=== PATIENT | male | born 1970 | race Caucasian/White ===

== ENCOUNTER 2016-10-05 10:39 | Inpatient (IN) | payer BC, OTHER ==
[~2016-10-05] VITALS: Ht 182.9 cm; Wt 91.7 kg
[~2016-10-05 10:39] MED LIST: ALBU0.086 NEB; ALBU8I INH; PRED20 PO
[2016-10-07] VITALS (8 sets, daily range): BP systolic 129–157; BP diastolic 76–97; PULSE 63–102; RESP 15–22; TEMP 95.6–97.8; O2SAT 95–99
[2016-10-07] MEDS ORDERED: VANCOMYCIN 1000 MG/NS 250 ML (for <70 kg) IV SCH ×2 (06:15)
[2016-10-07] MEDS ORDERED: SODIUM CHLORID 0.9% 500 ML IV PRN (06:30)
[2016-10-07] MEDS ORDERED: METOPROLOL TARTRATE 25 MG TAB PO PRN (06:30)
[2016-10-07] MEDS ORDERED: INSULIN HUMAN REGULAR 1,000 UNITS/10 ML VIAL SQ PRN (06:30)
[2016-10-07] MEDS ORDERED: POVIDONE IODINE 5% (ANTISEPSIS KIT) 4 APPLICATIONS EACH NARE PRN (06:30)
[2016-10-07] MEDS ORDERED: LACTATED RINGER'S 1000 ML IV PRN (06:30)
[2016-10-07] MEDS ORDERED: CHLORHEXIDINE GLUCONATE 2 % 1 PACK (2 CLOTHS) TOPICAL PRN (06:30)
[2016-10-07] MEDS ORDERED: SYMB160A INH (06:35)
[2016-10-07] MEDS ORDERED: VENTAER INH (06:35)
[2016-10-07] MEDS ORDERED: PANT40TA3 PO (06:35)
[2016-10-07] MEDS ORDERED: ALBU0.63 NEB (06:35)
[2016-10-07 07:10] LABS: AUTOMATED NEUTROPHIL # 4.4 TH/MM3 (1.8-7.7); BASOPHIL # 0.1 TH/MM3 (0-0.2); BASOPHIL % 1.1 % (0.0-2.0); EOSINOPHIL # 0.2 TH/MM3 (0-0.4); EOSINOPHIL % 2.5 % (0.0-4.0); HEMATOCRIT 37.6 % (39.0-51.0); HEMO FLAGS DIFF FINAL; LYMPH % 24.3 % (9.0-44.0); LYMPHOCYTE # 1.8 TH/MM3 (1.0-4.8); MEAN CORPUSCULAR HEMOGLOBIN 28.8 PG (27.0-34.0); MEAN CORPUSCULAR HGB CONC 33.5 % (32.0-36.0); MONO % 10.9 % (0.0-8.0); NEUT % 61.2 % (16.0-70.0); PLATELET COUNT 319 TH/MM3 (150-450); RED BLOOD COUNT 4.38 MIL/MM3 (4.50-5.90); RED CELL DISTRIBUTION WIDTH 13.6 % (11.6-17.2); WHITE BLOOD COUNT 7.2 TH/MM3 (4.0-11.0)
[2016-10-07] MEDS ORDERED: FAMOTIDINE 20 MG/2 ML VIAL ONE (07:24)
[2016-10-07] MEDS ORDERED: BUPIVACAINE/EPINEPHRINE 0.25% PF 30 ML VIAL INFIL ONE (08:18)
[2016-10-07] MEDS ORDERED: fentaNYL CITRATE 250 MCG/5 ML AMP ONE ×3 (09:13→13:17)
[2016-10-07] MEDS ORDERED: ACETAMINOPHEN 1000 MG/100 ML VIAL IV ONE (09:13)
[2016-10-07] MEDS ORDERED: NEOSTIGMINE 3 MG/3 ML SYR IV ONE (11:06)
[2016-10-07] MEDS ORDERED: PROPOFOL 200 MG/20 ML AMP IV ONE (11:06)
[2016-10-07] MEDS ORDERED: KETOROLAC TROMETHAMINE 60 MG/2 ML (IM) VIAL IM ONE (11:07)
[2016-10-07] MEDS ORDERED: LACTATED RINGER'S 1000 ML INJ 1,000 ML IV ONE (11:07)
[2016-10-07] MEDS ORDERED: ONDANSETRON HCL 4 MG/2 ML VIAL IV PUSH ONE (11:07)
[2016-10-07] MEDS: SODIUM CHLOR 0.9% 1000 ML INJ 1,000 ML IV SCH ×2 (11:49→22:36)
--- NOTE | 2016-10-07 11:54 | HHI.PR ---
cc: Dewayne Jo MD Immediate Post Op Note Procedure Date: Oct 07, 2016 Pre Op Diagnosis: (1) Hiatal hernia (2) Mckee's esophagus with esophagitis (3) GERD (gastroesophageal reflux disease) (4) Status post laparoscopic Cinthia fundoplication (5) Family history of heart disease Post Op Diagnosis: (1) Hiatal hernia (2) Mckee's esophagus with esophagitis (3) GERD (gastroesophageal reflux disease) (4) Status post laparoscopic Cinthia fundoplication (5) Abdominal adhesions Surgeon: Dewayne Jo Welding Estimator(s): Dr. Rick Adames Procedure: Diagnostic laparoscopy and laparoscopic lysis of adhesions Attempted reduction of hiatal hernia Repair of gastrotomy Findings: Dense adhesions around the previous fundoplication Inability to completely reduce hiatal hernia secondary to adhesions Anesthesia: General Drains: None IVF Patient to: PACU Patient Condition: Good Implant/Devices: SEE IMPLANT LOG (if applicable) Date/Time of Procedure: SEE SURGICAL CARE RECORD Dewayne Jo MD Oct 07, 2016 11:54
[2016-10-07] MEDS ORDERED: HYDR-3516 PO (11:58)
[2016-10-07] MEDS ORDERED: Post-op Orders (for Pharmacy) MISC XX ONE (12:00)
[2016-10-07] MEDS ORDERED: SODIUM CHLORIDE 0.9% FLUSH 10 ML FLUSH IV FLUSH PRN (12:00)
[2016-10-07] MEDS ORDERED: MIDAZOLAM HCL 2 MG/2 ML VIAL ONE (12:03)
[2016-10-07] MEDS ORDERED: *morphine SULFATE 8 MG/ML PERIprocedure ONLY ONE ×3 (12:14→13:00)
[2016-10-07] MEDS ORDERED: DO NOT ADM ANY ANTICOAGULANT DRUGS PRN (13:00)
[2016-10-07] MEDS ORDERED: MIDAZOLAM HCL 5 MG/5 ML VIAL ONE (13:17)
--- NOTE | 2016-10-07 13:18 | RADRPT ---
EXAM DATE/TIME: 10/07/2016 12:16 [facility] COMPARISON: CHEST SINGLE AP, February 20, 2016, 11:02. INDICATIONS : Post hiatal hernia repair MEDICAL HISTORY : Hiatal hernia. salmeron's esophagus SURGICAL HISTORY : hiatal hernia surgery. ENCOUNTER: Initial ACUITY: 1 day PAIN SCORE: 0/10 LOCATION: Bilateral chest FINDINGS: A left-sided pneumothorax with subtotal collapse of the lung is noted. Moderate to large hiatal herni a is still evident. The right lung is clear. Heart remains normal in size. CONCLUSION: Left pneumothorax with subtotal collapse of the left lung. Persistent large hiatal hernia containing the stomach. Kenton Carpenter MD on October 07, 2016 at 13:09 Board Certified Radiologist. This report was verified electronically.
--- NOTE | 2016-10-07 13:58 | PD.RAD ---
Post Procedure Progress Note Pre Procedure Diagnosis: (1) Pneumothorax, left Post Procedure Diagnosis: (1) Pneumothorax, left Procedure Date: Oct 07, 2016 Supervising Radiologist: Dillon Bennett Anesthesia: Local, Conscious Sedation Plan of Activity Patient to Unit: Nursing Unit Patient Condition: Good Additional Comments: Left chest tube placed without difficulty Tube in good position See PACS Report for procedural detail/treatment Dillon Bennett MD Oct 07, 2016 13:58
--- NOTE | 2016-10-07 14:19 | RADRPT ---
EXAM DATE/TIME: 10/07/2016 13:48 [facility] COMPARISON: No previous studies available for comparison. INDICATIONS : Patient with left pneumothorax post surgery in need of chest tube placement. MEDICAL HISTORY : 1. Hiatal hernia 2. Mckee's esophagus with esophagitis 3. GERD (gastroesophageal reflux disease) 4. Status post laparoscopic Cinthia fundoplication 5. Family history of heart disease SURGICAL HISTORY : 1.Diagnostic laparoscopy and laparoscopic lysis of adhesions 2.Attempted reduction of hiatal hernia 3.Repair of gastrotomy ENCOUNTER: Initial ACUITY: 1 day PAIN SCORE: 0/10 FLUORO TIME: minutes IMAGE SERIES: 1 SEDATION TIME: 30 minutes MEDICATION(S): 1.) 1 mg midazolam (Versed) IV 2.) 50 mcg fentanyl (Sublimaze) IV DEVICE(S): 1.) 10 Maltese non-locking catheter tabitha PROCEDURE : 1. Fluoroscopically guided chest tube placement. 2. Conscious sedation with continuous EKG and oximetry monitoring. The risks, benefits and alternatives to the procedure were explained and verbal and written consent w as obtained. The site was prepped in sterile fashion. Full sterile technique was used, including ca p, mask, sterile gloves and gown and a large sterile sheet. Hand hygiene and 2% chlorhexidine and/or betadine/alcohol prep was utilized per protocol for cutaneous antisepsis. The skin and subcutaneous tissues were infiltrated with local anesthetic solution. With fluoroscopic guidance the chest was punctured between the first and second interspace and a 10 F rench nonlocking catheter was placed in the left lung apex. The chest tube was hooked to Pleur-evac. There was immediate reinflation of the left lung. Post procedure images demonstrate satisfactory pos ition of the tube. The catheter was sutured in place and a Percu-Stay was applied. Conscious sedation was performed with the prescribed dosages and duration as above in the presence of an independent trained radiology nurse to assist in the monitoring of the patient. EKG and oximetry remained stable throughout the procedure. The patient tolerated the procedure well and there were n o complications. The patient was sent to post anesthesia recovery in stable condition. CONCLUSION: Uncomplicated chest tube placement as above. Dillon Bennett MD on October 07, 2016 at 14:16 Board Certified Radiologist. This report was verified electronically.
--- NOTE | 2016-10-07 15:31 | EKG ---
Date Performed: 10/07/2016 Time Performed: 06:58:12 PTAGE: 46 years EKG: Sinus rhythm NORMAL ECG Compared to prior tracing no significant change PREVIOUS TRACING : 01/04/2015 21.08 DOCTOR: Suraj Vergara Interpretating Date/Time 10/07/2016 15:30:24
--- NOTE | 2016-10-07 15:59 | RADRPT ---
EXAM DATE/TIME: 10/07/2016 14:53 [facility] COMPARISON: CHEST SINGLE AP, February 20, 2016, 11:02. CHEST SINGLE AP, October 07, 2016, 12:16. INDICATIONS : Evaluate chest tube placement. MEDICAL HISTORY : Hiatal hernia. salmeron's esophagus SURGICAL HISTORY : hiatal hernia surgery. ENCOUNTER: Subsequent ACUITY: 1 day PAIN SCORE: 5/10 LOCATION: Bilateral chest FINDINGS: Interval placement of left-sided chest tube with tip in the superior medial hemithorax. Near interval resolution of left-sided pneumothorax. Airspace disease in the medial left lower lung zone likely re flects compressive atelectasis. Right lung is clear. Cardiomediastinal contours are stable. Remainder of the exam is unchanged. CONCLUSION: 1. Well-positioned left-sided chest tube with interval resolution of previously noted large left-side d pneumothorax. 2. Left lower lung zone airspace consolidation, likely residual compressive atelectasis. Jeremías Garcia MD on October 07, 2016 at 15:51 Board Certified Radiologist. This report was verified electronically.
[2016-10-07] MEDS: HYDROmorphone HCL PF 1 MG/ML VIAL IV PRN ×2 (17:59→22:36)
[2016-10-07] MEDS: ACETAMINOPHEN/HYDROcodone 325 MG/5 MG TAB PO PRN (20:16)
[2016-10-07] MEDS: SODIUM CHLORIDE 0.9% FLUSH 10 ML FLUSH IV FLUSH SCH (20:16)
[2016-10-08] VITALS (8 sets, daily range): BP systolic 106–131; BP diastolic 62–82; PULSE 88–105; RESP 17–24; TEMP 96.2–97.7; O2SAT 94–96
[2016-10-08] MEDS: ONDANSETRON HCL 4 MG/2 ML VIAL IV PRN ×2 (02:27→12:21)
[2016-10-08] MEDS: ACETAMINOPHEN/HYDROcodone 325 MG/5 MG TAB PO PRN ×3 (02:28→12:21)
[2016-10-08] MEDS: HYDROmorphone HCL PF 1 MG/ML VIAL IV PRN (04:17)
[2016-10-08] MEDS: SODIUM CHLOR 0.9% 1000 ML INJ 1,000 ML IV SCH ×3 (07:12→22:53)
[2016-10-08] MEDS: SODIUM CHLORIDE 0.9% FLUSH 10 ML FLUSH IV FLUSH SCH ×2 (08:36→20:30)
--- NOTE | 2016-10-08 08:41 | RADRPT ---
EXAM DATE/TIME: 10/08/2016 07:41 [facility] COMPARISON: CT PULMONARY ANGIOGRAM, January 12, 2015, 17:26. CHEST SINGLE AP, October 07, 2016, 12:16. CHEST TUB E PLACEMENT, LEFT, October 07, 2016, 13:48. CHEST PA & LAT, January 04, 2015, 21:12. INDICATIONS : Pneumothorax. MEDICAL HISTORY : Hiatal hernia. barretts esophagus SURGICAL HISTORY : hiatal hernia repair ENCOUNTER: Subsequent ACUITY: 2 days PAIN SCORE: 5/10 LOCATION: Bilateral chest FINDINGS: Chest tube in good position of the left without pneumothorax. Right lung is clear. Large air collec tion in the left lower chest.. CONCLUSION: There is no pneumothorax. Clyde Bennett MD FACR on October 08, 2016 at 8:35 Board Certified Radiologist. This report was verified electronically.
--- NOTE | 2016-10-08 11:28 | HHI.PR ---
Subjective Subjective Notes DAILY PROGRESS NOTE FOR SURGICAL ATTENDING, DR. DEWAYNE JO Little painful to take deep breaths Mild nausea Objective Vitals/I&O Vital Signs Date Time Temp Pulse Resp B/P Pulse Ox O2 Delivery O2 Flow Rate FiO2 10/08/16 09:49 94 Nasal Cannula 2.00 10/08/16 08:00 96.4 105 17 119/82 Labs 10/07/16 10/07/16 10/08/16 15:00 23:00 07:00 Intake Total 2300 ml 653 ml 1207 ml Output Total 380 ml 1225 ml 668 ml Balance 1920 ml -572 ml 539 ml Intake Oral 0 ml 240 ml 360 ml IV Total 1000 ml 413 ml 847 ml Other 1300 ml Output Urine Total 175 ml 1175 ml 650 ml Chest Tube Drainage Total 50 ml 8 ml Drainage Total 5 ml 10 ml Estimated Blood Loss 75 ml Other 125 ml # Bowel Movements 0 0 Laboratory Tests Test 10/08/16 12:52 White Blood Count 10.7 TH/MM3 Red Blood Count 4.05 MIL/MM3 Hemoglobin 11.4 GM/DL Hematocrit 35.3 % Mean Corpuscular Volume 87.2 FL Mean Corpuscular Hemoglobin 28.1 PG Mean Corpuscular Hemoglobin 32.2 % Concent Red Cell Distribution Width 13.8 % Platelet Count 275 TH/MM3 Mean Platelet Volume 9.4 FL Neutrophils (%) (Auto) 80.3 % Lymphocytes (%) (Auto) 9.1 % Monocytes (%) (Auto) 10.2 % Eosinophils (%) (Auto) 0.1 % Basophils (%) (Auto) 0.3 % Neutrophils # (Auto) 8.6 TH/MM3 Lymphocytes # (Auto) 1.0 TH/MM3 Monocytes # (Auto) 1.1 TH/MM3 Eosinophils # (Auto) 0.0 TH/MM3 Basophils # (Auto) 0.0 TH/MM3 CBC Comment DIFF FINAL Differential Comment Sodium Level 138 MEQ/L Potassium Level 3.8 MEQ/L Chloride Level 107 MEQ/L Carbon Dioxide Level 25.5 MEQ/L Anion Gap 6 MEQ/L Blood Urea Nitrogen 10 MG/DL Creatinine 0.75 MG/DL Estimat Glomerular Filtration 111 ML/MIN Rate Random Glucose 107 MG/DL Calcium Level 8.4 MG/DL Radiology Last Impressions Chest X-Ray 10/08/16 0600 Signed Impressions: Service Date/Time: Saturday, October 08, 2016 07:41 - CONCLUSION: There is no pneumothorax. Clyde Bennett MD FACR Chest Tube Insertion 10/07/16 0000 Signed Impressions: Service Date/Time: September 13:48 - CONCLUSION: Uncomplicated chest tube placement as above. Dillon Bennett MD Cardiovascular: Regular Lungs: Upper airway course sound, Other (left chest tube in place) Abdomen: Non-distended, Non-tender, Post-op tenderness (URIEL in place serosanguineous drainage) Extremities: SCD's on A/P Problem List: (1) Pneumothorax, left (2) Abdominal adhesions (3) Mckee's esophagus with esophagitis (4) GERD (gastroesophageal reflux disease) (5) Hiatal hernia (6) Reactive airway disease (7) PUD (peptic ulcer disease) Assessment and Plan 38-year-old gentleman status post recurrent hiatal hernia with attempted laparoscopic reduction that could not be performed secondary to adhesions He had a small left-sided pneumothorax decompressed with a pigtail catheter by the radiologist. Discussed with the radiologist today about possibly removing the pigtail catheter Discussed the intraoperative findings once again with the patient will make arrangements for referral after he recovers. Slowly advance diet I will check a CBC and blood today and tomorrow Attending Statement NOTE FOR SURGICAL ATTENDING, DR. DEWAYNE JO I attest that I had a [id number] encounter with the patient on the same day, and personally performed and documented my assessment and findings in the medical record. The following services were provided during this hospital visit: Chart data review, vital sign assessments/reviewing monitor data Review of consultations notes if present. Medication orders/review and/or management Ordering and/or reviewing lab tests Ordering and/or interpreting/reviewing x-rays and/or diagnostic studies Care of the patient and discussion of the patient with the care team Documentation time To help prompt me to consider important information that might be impacting today's encounter and assessment, information from prior notes written by myself or my colleagues may have been "brought forward/copy and pasted" into today's note. Problem Qualifiers (1) GERD (gastroesophageal reflux disease): Qualified Code: K21.0 - Gastroesophageal reflux disease with esophagitis (2) Reactive airway disease: Dewayne Jo MD Oct 08, 2016 11:28
[2016-10-08] MEDS ORDERED: HYDROmorphone HCL PF 1 MG/ML VIAL IV PRN (12:00)
[2016-10-08 13:30] LABS: AUTOMATED NEUTROPHIL # 8.6 TH/MM3 (1.8-7.7); BASOPHIL % 0.3 % (0.0-2.0); EOSINOPHIL % 0.1 % (0.0-4.0); HEMATOCRIT 35.3 % (39.0-51.0); HEMO FLAGS DIFF FINAL; LYMPH % 9.1 % (9.0-44.0); MEAN CELL VOLUME 87.2 FL (80.0-100.0); MEAN CORPUSCULAR HEMOGLOBIN 28.1 PG (27.0-34.0); MEAN CORPUSCULAR HGB CONC 32.2 % (32.0-36.0); MONO % 10.2 % (0.0-8.0); NEUT % 80.3 % (16.0-70.0); PLATELET COUNT 275 TH/MM3 (150-450); RED BLOOD COUNT 4.05 MIL/MM3 (4.50-5.90); RED CELL DISTRIBUTION WIDTH 13.8 % (11.6-17.2); WHITE BLOOD COUNT 10.7 TH/MM3 (4.0-11.0)
[2016-10-08 14:22] LABS: BICARBONATE 25.5 MEQ/L (21.0-32.0); POTASSIUM 3.8 MEQ/L (3.5-5.1)
--- NOTE | 2016-10-08 15:32 | RADRPT ---
EXAM DATE/TIME: 10/08/2016 15:03 [facility] COMPARISON: CHEST PA & LAT, October 08, 2016, 7:41. CHEST EXPIRATION ONLY, October 07, 2016, 14:53. INDICATIONS : Pneumothorax MEDICAL HISTORY : Hiatal hernia. barretts esophagus SURGICAL HISTORY : hiatal hernia repair, chest tube ENCOUNTER: Subsequent ACUITY: 3 days PAIN SCORE: Non-responsive. LOCATION: Bilateral chest FINDINGS: There is no pneumothorax with chest tube in place on the left. Stomach filled with air is again seen in the left chest. The right lung is clear. The heart is minimally enlarged. CONCLUSION: There is no pneumothorax. Clyde Bennett MD FACR on October 08, 2016 at 15:26 Board Certified Radiologist. This report was verified electronically.
--- NOTE | 2016-10-08 17:12 | RADRPT ---
EXAM DATE/TIME: 10/08/2016 16:22 [facility] COMPARISON: CHEST SINGLE AP, October 07, 2016, 12:16. INDICATIONS : Pneumothorax. MEDICAL HISTORY : Hiatal hernia. Mckee's esophagus SURGICAL HISTORY : hiatal hernia surgery. ENCOUNTER: Subsequent ACUITY: 1 day PAIN SCORE: 2/10 LOCATION: chest FINDINGS: Chest tube has been removed. There is no pneumothorax. Air filled stomach is again seen above the l eft hemidiaphragm. The heart and pulmonary vascularity are normal. CONCLUSION: Negative for pneumothorax. Clyde Bennett MD FACR on October 08, 2016 at 17:08 Board Certified Radiologist. This report was verified electronically.
--- NOTE | 2016-10-08 17:42 | RADRPT ---
EXAM DATE/TIME: 10/08/2016 16:00 [facility] COMPARISON: No previous studies available for comparison. INDICATIONS : LEFT PNEUMO THORAX RESOLUTION DEVICE(S): 1.) Vaseline occlusive dressing PROCEDURE : Chest tube removal. Using aseptic technique the previously placed chest tube was easily removed in one piece and Vaseline gauze and sterile dressing was applied. Chest radiograph is to be obtained. CONCLUSION: Uncomplicated chest tube removal. Jeremías Garcia MD on October 08, 2016 at 17:40 Board Certified Radiologist. This report was verified electronically.
[2016-10-09] VITALS: BP 123/70; PULSE 90; RESP 20; TEMP 96.6; O2SAT 96
[2016-10-09 05:29] LABS: AUTOMATED NEUTROPHIL # 7.9 TH/MM3 (1.8-7.7); BASOPHIL # 0.1 TH/MM3 (0-0.2); BASOPHIL % 0.6 % (0.0-2.0); EOSINOPHIL # 0.1 TH/MM3 (0-0.4); EOSINOPHIL % 1.1 % (0.0-4.0); HEMATOCRIT 35.1 % (39.0-51.0); HEMO FLAGS DIFF FINAL; LYMPHOCYTE # 1.1 TH/MM3 (1.0-4.8); MEAN CELL VOLUME 87.8 FL (80.0-100.0); MEAN CORPUSCULAR HEMOGLOBIN 29.2 PG (27.0-34.0); MEAN CORPUSCULAR HGB CONC 33.2 % (32.0-36.0); MONO % 11.9 % (0.0-8.0); NEUT % 75.4 % (16.0-70.0); PLATELET COUNT 295 TH/MM3 (150-450); RED BLOOD COUNT 3.99 MIL/MM3 (4.50-5.90); RED CELL DISTRIBUTION WIDTH 13.6 % (11.6-17.2); WHITE BLOOD COUNT 10.4 TH/MM3 (4.0-11.0)
[2016-10-09] MEDS: SODIUM CHLOR 0.9% 1000 ML INJ 1,000 ML IV SCH ×2 (07:31→17:24)
[2016-10-09 08:00] VITALS: BP 113/76; PULSE 103; RESP 17; TEMP 96.1; O2SAT 94
[2016-10-09] MEDS: ACETAMINOPHEN/HYDROcodone 325 MG/5 MG TAB PO PRN ×2 (08:29→17:26)
[2016-10-09] MEDS: ONDANSETRON HCL 4 MG/2 ML VIAL IV PRN ×2 (08:29→14:16)
[2016-10-09] MEDS: SODIUM CHLORIDE 0.9% FLUSH 10 ML FLUSH IV FLUSH SCH ×2 (08:30→20:33)
[2016-10-09 08:56] VITALS: O2SAT 93
--- NOTE | 2016-10-09 09:39 | HHI.PR ---
Subjective Subjective Notes c/o difficulty with deep breath, has nausea and pain. Chest tube removed yesterday. Outpatient inhalers not ordered. Objective Vitals/I&O Vital Signs Date Time Temp Pulse Resp B/P Pulse Ox O2 Delivery O2 Flow Rate FiO2 10/09/16 08:56 93 Nasal Cannula 2.00 10/09/16 08:00 96.1 103 17 113/76 Labs Laboratory Tests Test 10/08/16 10/09/16 12:52 04:33 White Blood Count 10.7 10.4 Red Blood Count 4.05 3.99 Hemoglobin 11.4 11.7 Hematocrit 35.3 35.1 Mean Corpuscular Volume 87.2 87.8 Mean Corpuscular Hemoglobin 28.1 29.2 Mean Corpuscular Hemoglobin 32.2 33.2 Concent Red Cell Distribution Width 13.8 13.6 Platelet Count 275 295 Mean Platelet Volume 9.4 9.5 Neutrophils (%) (Auto) 80.3 75.4 Lymphocytes (%) (Auto) 9.1 11.0 Monocytes (%) (Auto) 10.2 11.9 Eosinophils (%) (Auto) 0.1 1.1 Basophils (%) (Auto) 0.3 0.6 Neutrophils # (Auto) 8.6 7.9 Lymphocytes # (Auto) 1.0 1.1 Monocytes # (Auto) 1.1 1.2 Eosinophils # (Auto) 0.0 0.1 Basophils # (Auto) 0.0 0.1 CBC Comment DIFF FINAL DIFF FINAL Differential Comment Sodium Level 138 Potassium Level 3.8 Chloride Level 107 Carbon Dioxide Level 25.5 Anion Gap 6 Blood Urea Nitrogen 10 Creatinine 0.75 Estimat Glomerular Filtration 111 Rate Random Glucose 107 Calcium Level 8.4 Radiology Last Impressions Chest X-Ray 10/08/16 0600 Signed Impressions: Service Date/Time: Saturday, October 08, 2016 07:41 - CONCLUSION: There is no pneumothorax. Clyde Bennett MD FACR Chest Tube Insertion 10/07/16 0000 Signed Impressions: Service Date/Time: September 13:48 - CONCLUSION: Uncomplicated chest tube placement as above. Dillon Bennett MD Cardiovascular: Regular Lungs: Clear, Other (slight decrease in BS L vs R) Abdomen: Non-distended, Non-tender, Other (incisions all healing well. No erythema or drainage) Extremities: No edema A/P Problem List: (1) Pneumothorax, left (2) Abdominal adhesions (3) Mckee's esophagus with esophagitis (4) GERD (gastroesophageal reflux disease) (5) Hiatal hernia (6) Reactive airway disease (7) PUD (peptic ulcer disease) Assessment and Plan POD 2 s/p lap reduction of incarcerated HH, procedure stopped due to severity of adhesions of stomach in mediastinum. Plan referral to tertiary center. Restart inhalers, get CXR to follow up Chest tube removed yesterday for PTX. Discussed findings at surgery in detail with patient. Problem Qualifiers (1) GERD (gastroesophageal reflux disease): Qualified Code: K21.0 - Gastroesophageal reflux disease with esophagitis (2) Reactive airway disease: Rick Ramirez MD Oct 09, 2016 09:38
[2016-10-09] MEDS ORDERED: RESP: ALBUTEROL 0.63 MG/3 ML NEB (PRN) NEB (09:45)
--- NOTE | 2016-10-09 10:43 | RADRPT ---
EXAM DATE/TIME: 10/09/2016 09:50 [facility] COMPARISON: CT PULMONARY ANGIOGRAM, January 12, 2015, 17:26. CHEST EXPIRATION ONLY, October 08, 2016, 15:03. INDICATIONS : Post left chest tube removal. MEDICAL HISTORY : Hiatal hernia. Mckee's esophagus. SURGICAL HISTORY : Hiatal hernia surgery. ENCOUNTER: Subsequent ACUITY: 1 day PAIN SCORE: 0/10 LOCATION: Left chest FINDINGS: Portable upright AP expiratory view of the chest demonstrates a normal-sized cardiac silhouette. No p neumothorax is visualized following chest tube removal. There is persistent pleural-parenchymal opaci ty at the left lung base. Air-containing structure overlies the inferior left cameron-thorax and is stab le. CONCLUSION: 1. No pneumothorax is visualized following left chest tube removal. There is pleural-parenchymal opac ity at the left lung base which could represent atelectasis, consolidation, and/or effusion. 2. Air-containing structure overlying the left inferior hemithorax is stable. It was previously descr ibed as being an air-filled stomach. This is possible if there is eventration of the hemidiaphragm or if there is a large hiatal hernia. Que Romo MD on October 09, 2016 at 10:38 Board Certified Radiologist. This report was verified electronically.
[2016-10-09 12:00] VITALS: BP 135/82; PULSE 93; RESP 18; TEMP 98; O2SAT 95
[2016-10-09] MEDS: ALBUTEROL SULFATE 90 MCG/ACT HFA 18 GM INHALER INH PRN (13:18)
[2016-10-09 15:00] VITALS: BP 123/79; PULSE 93; RESP 17; TEMP 95.5; O2SAT 95
[2016-10-09 20:00] VITALS: BP 134/82; PULSE 87; RESP 20; TEMP 96.8; O2SAT 96
[2016-10-09] MEDS: BUDESONIDE-FORMOTEROL 160/4.5 MCG INHALER INH SCH (20:33)
--- NOTE | 2016-10-09 22:51 | MP ---
cc: MISSY JO DATE OF SURGERY 10/07/16 PREOPERATIVE DIAGNOSIS 1. Recurrent hiatal hernia. 2. Esophagitis 3. GE reflux 4. Anemia 5. Mckee's esophagus 6. Chronic pulmonary issues. POSTOPERATIVE DIAGNOSIS 1. Recurrent hiatal hernia. 2. Esophagitis 3. GE reflux 4. Anemia 5. Mckee's esophagus 6. Chronic pulmonary issues. 7. Very dense adhesions from previous hiatal hernia repair and Cinthia fundoplication. 8. Small rent in pleural space on the left side. 9. Small gastrotomy in the anterior portion of the wrap. 10 Left ptx ANESTHESIA General SURGEON Dr. Stephanie Jo MEAT STOCKER Dr. Regi Ramirez PROCEDURE Diagnostic laparoscopy with attempted reduction of recurrent hiatal hernia, unable to be done secondary to dense adhesions in the hiatus and in the chest with inability to delineate anatomy. INDICATIONS This is a pleasant 46-year-old gentleman who had severe reflux disease about 8 or 9 months ago with esophagitis, reflux, anemia, Mckee's, chronic pulmonary issues and a chronic cough. He underwent a hiatal hernia reduction with Cinthia fundoplication with complete resolution of his symptomatology for about 3 months and then he had a severe coughing spell that lasted about 6 weeks and subsequent had a recurrence of his hiatal hernia up in his chest. Plans were made for above. Unfortunately, after 3 hours of dissection we could not delineate the proper planes to reduce this hiatal hernia and, for this reason. procedure was aborted. In attempts in the future he could be addressed by thoracic surgeon for thoracic approach to reduce this recurrence. PROCEDURE IN DETAIL The patient was taken to the operating room, placed in supine position. After endotracheal anesthesia, his abdomen is prepped with Betadine. We make an incision above the umbilicus at his previous incision and obtain access in the abdomen. The balloon trocar was introduced and four of the working ports were placed, two in the right side of the abdomen, two in the left. The Rina flex retractor is then placed om the liver. He is placed in reverse trendelenburg. The hiatus can be visualized. He has about a little less than half the stomach up in his chest. The wrap is up in the chest as well. We first direct our attention to the right side where he are able to get into somewhat of a plane along the hiatus to free up the portion of the wrap which we are able to visualize. The more superior portion of the wrap is fairly densely adherent up into the pleural space and anterior chest. We dissect on the left side and are able to identify the tomeka. Unfortunately. We make a small rent in the pleural space. No injury to the lung during the dissection. We get posteriorly to where we almost get a window, but it is fairly densely adhesed circumferentially around the wrap. We are able to identify the wrap and pull down a portion of the wrap back into the abdomen. However, the esophagus is not able to be clearly identified despite placing a bougie. During the dissection, we make a small rent in the anterior portion of the wrap on the right side. This required three sutures to close with good results. After over 3 hours of dissecting with inability to delineate proper planes, I was concerned that injury would result. For this reason, the procedure is abandoned. We attempt to evacuate the air out of the left chest with the suction device. Because of a small gastrotomy although it was clearly sealed we did place a small URIEL in this area and brought that out through separate stab wound incision. The irrigate solution, CO2 is removed from the abdomen. The trocars are removed. The fascial layer at the umbilicus closed with 0 Vicryl. Skin at all four sites closed with a 4-0 Vicryl. Stat portable chest x-ray in the recovery room unfortunately showed a fairly sizeable pneumothorax and I talked to the radiologist about placing a small catheter to evacuate the CO2 as I did not think I injured the lung and they were able to decompress this. Discussion of the events was done on the phone to the mother who was not here are the hospital. I then talked to the patient in the radiology suite after he had his chest tube placed and I told him the plan. He appeared to understand but justifiably was a little frustrated. We will watch him overnight in the hospital, possibly pull his URIEL and chest tube in the morning. Then we will make arrangements for referral to a specialist. MD SHIMA Santana/ /5:34 PM /10:38 PM MARK
[2016-10-10] VITALS (8 sets, daily range): BP systolic 119–147; BP diastolic 76–91; PULSE 75–101; RESP 17–23; TEMP 95.7–96.8; O2SAT 94–96
[2016-10-10] MEDS: SODIUM CHLORIDE 0.9% FLUSH 10 ML FLUSH IV FLUSH SCH ×2 (09:00→21:00)
[2016-10-10] MEDS: ALBUTEROL SULFATE 90 MCG/ACT HFA 18 GM INHALER INH PRN (09:35)
[2016-10-10] MEDS: ACETAMINOPHEN/HYDROcodone 325 MG/5 MG TAB PO PRN ×3 (09:35→18:29)
[2016-10-10] MEDS: SODIUM CHLOR 0.9% 1000 ML INJ 1,000 ML IV SCH (09:37)
[2016-10-10] MEDS: BUDESONIDE-FORMOTEROL 160/4.5 MCG INHALER INH SCH ×2 (09:52→21:00)
--- NOTE | 2016-10-10 11:46 | HHI.PR ---
Subjective Subjective Notes Still a little short of breath when he gets up Knows about referral Objective Vitals/I&O Vital Signs Date Time Temp Pulse Resp B/P Pulse Ox O2 Delivery O2 Flow Rate FiO2 10/10/16 09:59 95 Nasal Cannula 2.00 10/10/16 08:00 95.7 79 23 139/81 Radiology Last Impressions Chest X-Ray 10/08/16 0600 Signed Impressions: Service Date/Time: Saturday, October 08, 2016 07:41 - CONCLUSION: There is no pneumothorax. Clyde Bennett MD FACR Chest Tube Insertion 10/07/16 0000 Signed Impressions: Service Date/Time: September 13:48 - CONCLUSION: Uncomplicated chest tube placement as above. Dillon Bennett MD Lungs: Other (decreased to absent breath sounds LEFT chest; clear on right) Abdomen: Non-distended, Post-op tenderness A/P Problem List: (1) Pneumothorax, left (2) Abdominal adhesions (3) Mckee's esophagus with esophagitis (4) GERD (gastroesophageal reflux disease) (5) Hiatal hernia (6) Reactive airway disease (7) PUD (peptic ulcer disease) Assessment and Plan Problem List: (1) Pneumothorax, left (2) Abdominal adhesions (3) Mckee's esophagus with esophagitis (4) GERD (gastroesophageal reflux disease) (5) Hiatal hernia (6) Reactive airway disease (7) PUD (peptic ulcer disease) Assessment and Plan POD 3 s/p lap reduction of incarcerated HH, procedure stopped due to severity of adhesions of stomach in mediastinum. Plan referral to tertiary center. Restarted inhalers, CXR shewed no PTX Problem Qualifiers (1) GERD (gastroesophageal reflux disease): Qualified Code: K21.0 - Gastroesophageal reflux disease with esophagitis (2) Reactive airway disease: Dre Evans MD Oct 10, 2016 11:46
[2016-10-10] MEDS: ONDANSETRON HCL 4 MG/2 ML VIAL IV PRN (18:30)
[2016-10-11] VITALS: BP 113/74; PULSE 90; RESP 16; TEMP 97.5; O2SAT 95
[2016-10-11] MEDS: ACETAMINOPHEN/HYDROcodone 325 MG/5 MG TAB PO PRN ×4 (00:52→20:57)
[2016-10-11] MEDS: SODIUM CHLOR 0.9% 1000 ML INJ 1,000 ML IV SCH ×2 (05:49→07:33)
[2016-10-11] MEDS: BUDESONIDE-FORMOTEROL 160/4.5 MCG INHALER INH SCH ×2 (07:35→20:57)
[2016-10-11 08:00] VITALS: BP 134/77; PULSE 98; RESP 18; TEMP 98.1; O2SAT 94
[2016-10-11] MEDS: SODIUM CHLORIDE 0.9% FLUSH 10 ML FLUSH IV FLUSH SCH ×2 (09:00→20:57)
[2016-10-11 09:25] VITALS: O2SAT 93
[2016-10-11 12:00] VITALS: BP 135/84; PULSE 91; RESP 20; TEMP 96.2; O2SAT 92
--- NOTE | 2016-10-11 15:04 | HHI.PR ---
Subjective Subjective Notes DAILY PROGRESS NOTE FOR SURGICAL ATTENDING, DR. DEWAYNE JO Resting in bed Pain controlled Tolerating fulls Reports he has not been out of bed since surgery Objective Vitals/I&O Vital Signs Date Time Temp Pulse Resp B/P Pulse Ox O2 Delivery O2 Flow Rate FiO2 10/11/16 12:00 96.2 91 20 135/84 92 10/11/16 09:25 Nasal Cannula 2.00 Labs Laboratory Tests Test 10/09/16 04:33 White Blood Count 10.4 TH/MM3 Red Blood Count 3.99 MIL/MM3 Hemoglobin 11.7 GM/DL Hematocrit 35.1 % Mean Corpuscular Volume 87.8 FL Mean Corpuscular Hemoglobin 29.2 PG Mean Corpuscular Hemoglobin 33.2 % Concent Red Cell Distribution Width 13.6 % Platelet Count 295 TH/MM3 Mean Platelet Volume 9.5 FL Neutrophils (%) (Auto) 75.4 % Lymphocytes (%) (Auto) 11.0 % Monocytes (%) (Auto) 11.9 % Eosinophils (%) (Auto) 1.1 % Basophils (%) (Auto) 0.6 % Neutrophils # (Auto) 7.9 TH/MM3 Lymphocytes # (Auto) 1.1 TH/MM3 Monocytes # (Auto) 1.2 TH/MM3 Eosinophils # (Auto) 0.1 TH/MM3 Basophils # (Auto) 0.1 TH/MM3 CBC Comment DIFF FINAL Differential Comment Radiology Last Impressions Chest X-Ray 10/08/16 0600 Signed Impressions: Service Date/Time: Saturday, October 08, 2016 07:41 - CONCLUSION: There is no pneumothorax. Clyde Bennett MD FACR Chest Tube Insertion 10/07/16 0000 Signed Impressions: Service Date/Time: September 13:48 - CONCLUSION: Uncomplicated chest tube placement as above. Dillon Bennett MD Cardiovascular: Regular Lungs: Clear Abdomen: Other (lap sites c/d/i; URIEL in place with minimal SS output; prior pigtail chest tube in place with c/d/i dressing ) Extremities: No edema A/P Problem List: (1) Pneumothorax, left (2) Abdominal adhesions (3) Mckee's esophagus with esophagitis (4) GERD (gastroesophageal reflux disease) (5) Hiatal hernia (6) Reactive airway disease (7) PUD (peptic ulcer disease) Assessment and Plan POD4 s/p lap reduction of incarcerated HH, procedure stopped due to severity of adhesions of stomach in mediastinum. -Advance to regular soft diet -DC URIEL -PT eval and treat -Wean oxygen as tolerated -Plan referral to tertiary center in a few weeks; we will take care of this at office follow up visit Attending Statement NOTE FOR SURGICAL ATTENDING, DR. DEWAYNE JO I agree with above assessment and plan. The exam, history, and the medical decision-making described in the above note were completed with the assistance of the mid-level provider. I reviewed and agree with the findings presented. I attest that I had a [id number] encounter with the patient on the same day, and personally performed and documented my assessment and findings in the medical record. The following services were provided during this hospital visit: Chart data review, vital sign assessments/reviewing monitor data Review of consultations notes if present. Medication orders/review and/or management Ordering and/or reviewing lab tests Ordering and/or interpreting/reviewing x-rays and/or diagnostic studies Care of the patient and discussion of the patient with the care team Documentation time To help prompt me to consider important information that might be impacting today's encounter and assessment, information from prior notes written by myself or my colleagues may have been "brought forward/copy and pasted" into today's note. Problem Qualifiers (1) GERD (gastroesophageal reflux disease): Qualified Code: K21.0 - Gastroesophageal reflux disease with esophagitis (2) Reactive airway disease: Radha Knott Oct 11, 2016 15:04 Dewayne Jo MD Oct 13, 2016 17:35
[2016-10-11 16:00] VITALS: BP 146/90; PULSE 107; RESP 20; TEMP 97.9; O2SAT 92
[2016-10-11 20:00] VITALS: BP 136/89; PULSE 112; RESP 22; TEMP 98.9; O2SAT 92
[2016-10-12] VITALS (8 sets, daily range): BP systolic 119–128; BP diastolic 72–81; PULSE 82–105; RESP 16–20; TEMP 95.3–98.2; O2SAT 92–97
[2016-10-12] MEDS: BUDESONIDE-FORMOTEROL 160/4.5 MCG INHALER INH SCH ×2 (08:02→21:17)
[2016-10-12] MEDS: ACETAMINOPHEN/HYDROcodone 325 MG/5 MG TAB PO PRN ×3 (08:02→21:27)
[2016-10-12] MEDS: SODIUM CHLORIDE 0.9% FLUSH 10 ML FLUSH IV FLUSH SCH ×2 (08:02→21:17)
[2016-10-12] MEDS ORDERED: MAGNESIUM HYDROXIDE SUSP 30 ML CUP PO ONE (09:45)
[2016-10-12] MEDS: DOCUSATE SODIUM 100 MG CAP PO SCH ×2 (10:03→21:00)
[2016-10-12] MEDS ORDERED: OXYGENDME NAS.CANULA (13:14)
--- NOTE | 2016-10-12 13:15 | HHI.FF ---
Face to Face Verification Diagnosis: (1) Hiatal hernia (2) Pneumothorax, left (3) Mckee's esophagus with esophagitis (4) GERD (gastroesophageal reflux disease) (5) Reactive airway disease (6) Supplemental oxygen dependent Home Health Nursing Order: Oxygen administration education Instructions: New home oxygen I have seen patient Michoacano Mccoy on 10/12/16. My clinical findings support the need for the requested home health care services because: Limited ability to care for self I certify that my clinical findings support that this patient is homebound because: Post-op weakness Radha Knott Oct 12, 2016 13:15 Dewayne Jo MD Oct 13, 2016 17:36
--- NOTE | 2016-10-12 13:27 | HHI.PR ---
Subjective Subjective Notes DAILY PROGRESS NOTE FOR SURGICAL ATTENDING, DR. DEWAYNE JO Up to chair Pain better today Objective Vitals/I&O Vital Signs Date Time Temp Pulse Resp B/P Pulse Ox O2 Delivery O2 Flow Rate FiO2 10/12/16 12:38 2.00 10/12/16 12:00 95.3 82 18 119/75 97 10/12/16 08:30 Nasal Cannula Labs Laboratory Tests Test 10/09/16 04:33 White Blood Count 10.4 TH/MM3 Red Blood Count 3.99 MIL/MM3 Hemoglobin 11.7 GM/DL Hematocrit 35.1 % Mean Corpuscular Volume 87.8 FL Mean Corpuscular Hemoglobin 29.2 PG Mean Corpuscular Hemoglobin 33.2 % Concent Red Cell Distribution Width 13.6 % Platelet Count 295 TH/MM3 Mean Platelet Volume 9.5 FL Neutrophils (%) (Auto) 75.4 % Lymphocytes (%) (Auto) 11.0 % Monocytes (%) (Auto) 11.9 % Eosinophils (%) (Auto) 1.1 % Basophils (%) (Auto) 0.6 % Neutrophils # (Auto) 7.9 TH/MM3 Lymphocytes # (Auto) 1.1 TH/MM3 Monocytes # (Auto) 1.2 TH/MM3 Eosinophils # (Auto) 0.1 TH/MM3 Basophils # (Auto) 0.1 TH/MM3 CBC Comment DIFF FINAL Differential Comment Radiology Last Impressions Chest X-Ray 10/08/16 0600 Signed Impressions: Service Date/Time: Saturday, October 08, 2016 07:41 - CONCLUSION: There is no pneumothorax. Clyde Bennett MD FACR Chest Tube Insertion 10/07/16 0000 Signed Impressions: Service Date/Time: September 13:48 - CONCLUSION: Uncomplicated chest tube placement as above. Dillon Bennett MD Cardiovascular: Regular Lungs: Clear Abdomen: Other (lap sites c/d/i ) Extremities: No edema Narrative Exam LEFT chest with dressing in place A/P Problem List: (1) Pneumothorax, left (2) Abdominal adhesions (3) Mckee's esophagus with esophagitis (4) GERD (gastroesophageal reflux disease) (5) Hiatal hernia (6) Reactive airway disease (7) PUD (peptic ulcer disease) Assessment and Plan POD5 s/p lap reduction of incarcerated HH, procedure stopped due to severity of adhesions of stomach in mediastinum. -Tolerating regular soft diet -PT eval and treat -Wean oxygen as tolerated -Sats decreased with exertion; HHC and O2 ordered---consult to CM -Plan for home tomorrow -Plan referral to tertiary center in a few weeks; we will take care of this at office follow up visit Attending Statement NOTE FOR SURGICAL ATTENDING, DR. DEWAYNE JO I agree with above assessment and plan. The exam, history, and the medical decision-making described in the above note were completed with the assistance of the mid-level provider. I reviewed and agree with the findings presented. I attest that I had a [id number] encounter with the patient on the same day, and personally performed and documented my assessment and findings in the medical record. The following services were provided during this hospital visit: Chart data review, vital sign assessments/reviewing monitor data Review of consultations notes if present. Medication orders/review and/or management Ordering and/or reviewing lab tests Ordering and/or interpreting/reviewing x-rays and/or diagnostic studies Care of the patient and discussion of the patient with the care team Documentation time To help prompt me to consider important information that might be impacting today's encounter and assessment, information from prior notes written by myself or my colleagues may have been "brought forward/copy and pasted" into today's note. Problem Qualifiers (1) GERD (gastroesophageal reflux disease): Qualified Code: K21.0 - Gastroesophageal reflux disease with esophagitis (2) Reactive airway disease: Radha Knott Oct 12, 2016 13:27 Dewayne Jo MD Oct 13, 2016 17:37
[2016-10-13] VITALS: BP 119/61; PULSE 79; RESP 18; TEMP 97.2; O2SAT 95
[2016-10-13 08:00] VITALS: BP 120/70; PULSE 72; RESP 19; TEMP 97.2; O2SAT 95
[2016-10-13] MEDS: BUDESONIDE-FORMOTEROL 160/4.5 MCG INHALER INH SCH (09:22)
[2016-10-13] MEDS: DOCUSATE SODIUM 100 MG CAP PO SCH (09:22)
[2016-10-13] MEDS: SODIUM CHLORIDE 0.9% FLUSH 10 ML FLUSH IV FLUSH SCH (09:23)
[2016-10-13] MEDS: ACETAMINOPHEN/HYDROcodone 325 MG/5 MG TAB PO PRN ×2 (09:27→17:55)
[2016-10-13 12:00] VITALS: BP 110/71; PULSE 63; RESP 20; TEMP 97; O2SAT 96
--- NOTE | 2016-10-13 12:40 | HHI.DS ---
Discharge Summary Admission Date Oct 07, 2016 at 05:52 Discharge Date: Oct 13, 2016 Admitting Diagnosis (1) Pneumothorax, left (2) Abdominal adhesions Diagnosis: Principal (3) Mckee's esophagus with esophagitis Diagnosis: Principal (4) GERD (gastroesophageal reflux disease) Diagnosis: Principal (5) Hiatal hernia Diagnosis: Principal (6) Reactive airway disease Diagnosis: Secondary (7) PUD (peptic ulcer disease) Diagnosis: Secondary (8) Supplemental oxygen dependent Diagnosis: Secondary Brief History 46 year old male s/p lap reduction of incarcerated HH, procedure stopped due to severity of adhesions of stomach in mediastinum. CBC/BMP: 10/09/16 0433 Imaging Last Impressions Chest X-Ray 10/09/16 0000 Signed Impressions: Service Date/Time: Sunday, October 09, 2016 09:50 - CONCLUSION: 1. No pneumothorax is visualized following left chest tube removal. There is pleural-parenchymal opacity at the left lung base which could represent atelectasis, consolidation, and/or effusion. 2. Air-containing structure overlying the left inferior hemithorax is stable. It was previously described as being an air-filled stomach. This is possible if there is eventration of the hemidiaphragm or if there is a large hiatal hernia. Que Romo MD Tunnelled Chest Tube Removal 10/08/16 1600 Signed Impressions: Service Date/Time: Saturday, October 08, 2016 16:00 - CONCLUSION: Uncomplicated chest tube removal. Jeremías Garcia MD Chest Tube Insertion 10/07/16 0000 Signed Impressions: Service Date/Time: September 13:48 - CONCLUSION: Uncomplicated chest tube placement as above. Dillon Bennett MD PE at Discharge Alert and awake; up to chair Cardio: RRR Resp: CTAB Abd: soft non tender; lap sites c/d/i LEFT chest with dressing in place Hospital Course This is a 46 year old male s/p lap reduction of incarcerated HH, procedure stopped due to severity of adhesions of stomach in mediastinum. The patient did require chest tube placement by IR. His diet was advanced to a soft diet which he was able to tolerate. His pain was controlled using oral pain medications. He will require home oxygen use which was arranged through case management. He will follow up in the office and from there a referral will be made to a tertiary care center. Pt Condition on Discharge: Good Discharge Disposition: Disch w/ Home Health Serv Discharge Instructions DIET: Follow Instructions for: Soft Diet New Medications: Oxygen (O2) (Oxygen (O2)) Device 2 LITER RUMA.CANULA CONTINUOUS Oxygen Concentrator Portable Gaseous 2 L/min via Nasal Canula Continuous For 99 months Prevent Hypoxemia #2 CYLINDER Hydrocodone-Acetaminophen (Hydrocodone-Acetaminophen) 5-325 mg Tab 1 TAB PO Q4H PRN PAIN SCALE 1 TO 5 #28 TAB Continued Medications: Albuterol 18 GM Inh (Ventolin Hfa 18 GM Inh) 90 Mcg/Act Aer 2 PUFF INH Q4H PRN SHORTNESS OF BREATH #1 Ref 0 INHALER Albuterol Neb (Albuterol Neb) 0.63 Mg/3 Ml Neb 0.63 MG NEB Q4HR NEB PRN SHORTNESS OF BREATH #25 Ref 0 NEBULE Budesonide-Formoterol Inh (Symbicort Inh) 160-4.5 Mcg/Act Aero 1 PUFF INH Q12HR #1 Ref 0 INHALER Pantoprazole (Pantoprazole) 40 Mg Tab 40 MG PO DAILY Reflux #30 Ref 0 TAB Radha Knott Oct 13, 2016 12:40 Dewayne Jo MD Oct 13, 2016 17:38
== END 2016-10-13 18:03 | disposition home or self-care (01) | DRG 327 ==
LOC: HSDI 10-07 05:52 → EDSTATUS 10-07 08:00 → N07B 10-07 16:18
PROVIDERS: ADMIT Surgery; ATTEND Surgery
PROC: 0BNN4ZZ Release Right Pleura, Percutaneous Endoscopic Approach (ICD-10-PCS; 2016-10-07)
PROC: 0DNW4ZZ Release Peritoneum, Percutaneous Endoscopic Approach (ICD-10-PCS; 2016-10-07)
PROC: 0W9B30Z Drainage of Left Pleural Cavity with Drainage Device, Percutaneous Approach (ICD-10-PCS; 2016-10-07)
PROC: 0DQ74ZZ Repair Stomach, Pylorus, Percutaneous Endoscopic Approach (ICD-10-PCS; principal; 2016-10-07 07:46)
DX: K44.0 Diaphragmatic hernia with obstruction, without gangrene (principal); J93.9 Pneumothorax, unspecified; Z99.81 Dependence on supplemental oxygen; K91.71 Accidental puncture and laceration of a digestive system organ or structure during a digestive system procedure; K27.9 Peptic ulcer, site unspecified, unspecified as acute or chronic, without hemorrhage or perforation; K22.70 Barrett's esophagus without dysplasia; K21.0 Gastro-esophageal reflux disease with esophagitis; K66.0 Peritoneal adhesions (postprocedural) (postinfection); J44.9 Chronic obstructive pulmonary disease, unspecified; J45.909 Unspecified asthma, uncomplicated; D64.9 Anemia, unspecified; E78.5 Hyperlipidemia, unspecified; Y83.8 Other surgical procedures as the cause of abnormal reaction of the patient, or of later complication, without mention of misadventure at the time of the procedure; Y73.3 Surgical instruments, materials and gastroenterology and urology devices (including sutures) associated with adverse incidents; Y92.234 Operating room of hospital as the place of occurrence of the external cause; Z82.49 Family history of ischemic heart disease and other diseases of the circulatory system; Z88.0 Allergy status to penicillin; Z87.891 Personal history of nicotine dependence
CPT/HCPCS: 32557; 71010; 71020; 80048; 85025; 93005; 94150; 94620; 94664; 99152; 99153; C1729; C1769; J0131; J1170; J1885; J2250; J2270; J2405; J2710; J3010; J3370; J7030; J7050; J7120; J7613

== ENCOUNTER 2017-05-05 16:21 | Emergency (ER) | payer BC ==
[~2017-05-05] VITALS: Ht 182.9 cm; Wt 84.0 kg
[~2017-05-05 16:21] MED LIST changes: -ALBU0.086 NEB; +ALBU0.63 NEB; -ALBU8I INH; +HYDR-3516 PO; +OXYGENDME NAS.CANULA; +PANT40TA3 PO; -PRED20 PO; +SYMB160A INH; +VENTAER INH
[2017-05-05 17:00] VITALS: BP 150/75; PULSE 80; RESP 16; TEMP 98.4; O2SAT 96
[2017-05-05] MEDS ORDERED: SODIUM CHLORIDE 0.9% FLUSH 10 ML FLUSH IV FLUSH PRN (20:15)
[2017-05-05] MEDS ORDERED: MORPHINE SULFATE 4 MG/ML INJ IV PUSH ONE (20:15)
[2017-05-05] MEDS ORDERED: ONDANSETRON HCL 4 MG/2 ML VIAL IVP ONE (20:15)
--- NOTE | 2017-05-05 20:18 | PD ---
HPI Chief Complaint: Abdominal Pain Time Seen by Provider: 19:58 Travel History International Travel<30 days: No Contact w/Intl Traveler<30days: No Traveled to known affect area: No History of Present Illness HPI Patient comes emergency complaining of left-sided chest and upper abdominal pain ongoing since having 3 abdominal surgeries last year. Patient states symptoms got worse since going back to work and became more severe today while doing some heavy lifting. Patient describes pain as a stabbing pressure left- sided chest and left upper abdomen with occasional tingling in his left upper extremity. Denies any radiation of the pain. Pain is worse with certain movement. Denies anything making it better. Reports been taking ibuprofen for the pain. Denies any nausea, vomiting, loss change in bowel or bladder, fevers , trauma, headaches, or weakness. PFSH Past Medical History Anemia: Yes Arthritis: No Autoimmune Disease: No Anxiety: Yes Depression: No Heart Rhythm Problems: No Cancer: No Cardiovascular Problems: No High Cholesterol: No Chemotherapy: No Chest Pain: Yes Congestive Heart Failure: No COPD: Yes Cerebrovascular Accident: No Diabetes: No Diminished Hearing: No Endocrine: No Gastrointestinal Disorders: Yes (RAMOS'S ESOPHAGUS WITH ESOPHAGITIS) GERD: Yes Genitourinary: No Headaches: No Hepatitis: No Hiatal Hernia: Yes Heparin Induced Thrombocytopen: No Hypertension: No Immune Disorder: No Implanted Vascular Access Dvce: No Kidney Stones: No Musculoskeletal: No Neurologic: No Psychiatric: No Reproductive: No Respiratory: Yes Immunizations Current: No Migraines: No Radiation Therapy: No Renal Failure: No Seizures: No Sickle Cell Disease: No Sleep Apnea: No Thyroid Disease: No Ulcer: No Tetanus Vaccination: Unknown Influenza Vaccination: No ?: Not Past Surgical History Abdominal Surgery: Yes (LEONARDO FUNDLOPICATION X2) Arteriovenous Shunt: No Body Medical Devices: NONE Insulin Pump: No Joint Replacement: No Pacemaker: No Other Surgery: Yes (HIATAL HERNIA REPAIR) Social History Alcohol Use: Yes (occ) Tobacco Use: No (QUIT 5 YEARS AGO, SMOKED FOR 9) Substance Use: No (QUIT 2000) Allergies-Medications (Allergen,Severity, Reaction): Coded Allergies: penicillin G (Unverified Allergy, Unknown, 05/05/17) PT UNSURE OF REACTION. STS HE FEELS HE IS ALLERGIC BECASUE HIS MOTHER AND GRANDMOTHER ARE BOTH ALLERGIC TO IT. Reported Meds & Prescriptions Reported Meds & Active Scripts Active Oxygen (O2) Device 2 Liter RUMA.CANULA CONTINUOUS Oxygen Concentrator Portable Gaseous 2 L/min via Nasal Canula Continuous For 99 months Hydrocodone-Acetaminophen 5-325 mg Tab 1 Tab PO Q4H PRN Reported Ventolin Hfa 18 GM Inh (Albuterol Sulfate) 90 Mcg/Act Aer 2 Puff INH Q4H PRN Symbicort Inh (Budesonide/Formoterol Fumarate) 160-4.5 Mcg/Act Aero 1 Puff INH Q12HR Pantoprazole (Pantoprazole Sodium) 40 Mg Tab 40 Mg PO DAILY Albuterol Neb (Albuterol Sulfate) 0.63 Mg/3 Ml Neb 0.63 Mg NEB Q4HR NEB PRN Review of Systems Except as stated in HPI: all other systems reviewed are Neg Physical Exam Narrative GENERAL: Well-developed, well nourished, appears uncomfortable, and non-ill appearing. SKIN: Focused skin assessment warm and dry. HEAD: Atraumatic. Normocephalic. EYES: Pupils equal and round. EOMI. No scleral icterus. No injection or drainage. ENT: No nasal bleeding or discharge. Mucous membranes pink and moist. NECK: Trachea midline. No JVD. Supple. No nuclear rigidity. CARDIOVASCULAR: Regular rate and rhythm. No murmur appreciated. RESPIRATORY: No accessory muscle use. No respiratory distress. Clear to auscultation. Breath sounds equal bilaterally. Patient reports tenderness to palpation in the left chest wall anteriorly and posteriorly. GASTROINTESTINAL: Abdomen soft, nondistended, and no guarding. Hepatic and splenic margins not palpable. Normal bowel sounds 4. No pulsatile mass. Patient reports tenderness to palpation left upper quadrant. MUSCULOSKELETAL: No obvious deformities. No clubbing. No cyanosis. No edema. Full range of motion. NEUROLOGICAL: Awake and alert. No obvious cranial nerve deficits. Motor grossly within normal limits. Normal speech. PSYCHIATRIC: Appropriate mood and affect; insight and judgment normal. Data Data Last Documented VS Vital Signs Date Time Temp Pulse Resp B/P (MAP) Pulse Ox O2 Delivery O2 Flow Rate FiO2 05/05/17 17:00 98.4 80 16 150/75 (100) 96 Orders Orders Complete Blood Count With Diff (05/05/17 20:08) Comprehensive Metabolic Panel (05/05/17 20:08) Lipase (05/05/17 20:08) Lactic Acid (05/05/17 20:08) Prothrombin Time / Inr (Pt) (05/05/17 20:08) Act Partial Throm Time (Ptt) (05/05/17 20:08) Urinalysis - C+S If Indicated (05/05/17 20:08) Iv Access Insert/Monitor (05/05/17 20:08) Ecg Monitoring (05/05/17 20:08) Oximetry (05/05/17 20:08) Morphine Inj (Morphine Inj) (05/05/17 20:15) Ondansetron Inj (Zofran Inj) (05/05/17 20:15) Sodium Chloride 0.9% Flush (Ns Flush) (05/05/17 20:15) Electrocardiogram (05/05/17 20:08) Chest, Single Ap (05/05/17 20:08) Ckmb (Isoenzyme) Profile (05/05/17 20:08) Magnesium (Mg) (05/05/17 20:08) Troponin I (05/05/17 20:08) Aspirin Chew (Aspirin Chew) (05/05/17 20:30) Labs Laboratory Tests Test 05/05/17 20:30 White Blood Count 9.9 TH/MM3 Red Blood Count 4.89 MIL/MM3 Hemoglobin 12.6 GM/DL Hematocrit 39.3 % Mean Corpuscular Volume 80.4 FL Mean Corpuscular Hemoglobin 25.8 PG Mean Corpuscular Hemoglobin Concent 32.1 % Red Cell Distribution Width 17.9 % Platelet Count 322 TH/MM3 Mean Platelet Volume 7.9 FL Neutrophils (%) (Auto) 73.1 % Lymphocytes (%) (Auto) 13.4 % Monocytes (%) (Auto) 11.7 % Eosinophils (%) (Auto) 1.0 % Basophils (%) (Auto) 0.8 % Neutrophils # (Auto) 7.2 TH/MM3 Lymphocytes # (Auto) 1.3 TH/MM3 Monocytes # (Auto) 1.2 TH/MM3 Eosinophils # (Auto) 0.1 TH/MM3 Basophils # (Auto) 0.1 TH/MM3 CBC Comment DIFF FINAL Differential Comment MDM Medical Decision Making Medical Screen Exam Complete: Yes Emergency Medical Condition: Yes Differential Diagnosis Chronic pain, acute on chronic pain, pneumothorax, pneumonia, metabolic disturbance, pancreatitis, atypical chest pain Narrative Course Patient was seen and examined. IV was established patient was placed on cardiac monitoring. Initial laboratory and radiological studies were ordered. Patient was given IV morphine, IV Zofran, and a baby aspirin. Patient was signed out to Dr. Ventura at the end of my shift pending results. Please see her documentation for final diagnosis and disposition. Marcelino Amos May 05, 2017 20:18
[2017-05-05] MEDS ORDERED: ASPIRIN 81 MG CHEW TAB CHEW ONE (20:30)
[2017-05-05 20:42] LABS: AUTOMATED NEUTROPHIL # 7.2 TH/MM3 (1.8-7.7); BASOPHIL # 0.1 TH/MM3 (0-0.2); BASOPHIL % 0.8 % (0.0-2.0); EOSINOPHIL # 0.1 TH/MM3 (0-0.4); HEMATOCRIT 39.3 % (39.0-51.0); HEMOGLOBIN 12.6 GM/DL (13.0-17.0); LYMPH % 13.4 % (9.0-44.0); LYMPHOCYTE # 1.3 TH/MM3 (1.0-4.8); MEAN CELL VOLUME 80.4 FL (80.0-100.0); MEAN CORPUSCULAR HEMOGLOBIN 25.8 PG (27.0-34.0); MEAN CORPUSCULAR HGB CONC 32.1 % (32.0-36.0); MEAN PLATELET VOLUME 7.9 FL (7.0-11.0); MONO % 11.7 % (0.0-8.0); MONOCYTE # 1.2 TH/MM3 (0-0.9); NEUT % 73.1 % (16.0-70.0); PLATELET COUNT 322 TH/MM3 (150-450); RED BLOOD COUNT 4.89 MIL/MM3 (4.50-5.90); RED CELL DISTRIBUTION WIDTH 17.9 % (11.6-17.2); WHITE BLOOD COUNT 9.9 TH/MM3 (4.0-11.0)
--- NOTE | 2017-05-05 20:49 | RADRPT ---
EXAM DATE/TIME: 05/05/2017 20:16 [facility] COMPARISON: CHEST SINGLE AP, October 08, 2016, 16:22. INDICATIONS : Left chest pain. MEDICAL HISTORY : Chronic obstructive pulmonary disease. SURGICAL HISTORY : Cinthia fundoplication ENCOUNTER: Initial ACUITY: 1 day PAIN SCORE: 7/10 LOCATION: Left chest FINDINGS: Previously seen left pleural effusion and extensive consolidation have resolved. There is mild, patch y atelectasis and/or scarring of the left lung base. Right lung remains clear. No large effusion seen . No pneumothorax. Heart size stable, within normal limits. CONCLUSION: Mild atelectasis and/or scarring of the left lung base. Que Roberson MD on May 05, 2017 at 20:46 Board Certified Radiologist. This report was verified electronically.
[2017-05-05 20:53] LABS: CHLORIDE 103 MEQ/L (98-107); SODIUM (NA) 139 MEQ/L (136-145)
[2017-05-05 20:55] VITALS: O2SAT 98
[2017-05-05 20:56] VITALS: BP 158/70; PULSE 90; RESP 18; O2SAT 98
[2017-05-05 20:57] LABS: ALBUMIN 3.4 GM/DL (3.4-5.0); BICARBONATE 25.1 MEQ/L (21.0-32.0); BLOOD UREA NITROGEN 12 MG/DL (7-18); CALCIUM 8.2 MG/DL (8.5-10.1); GLUCOSE,RANDOM 91 MG/DL (74-106); LIPASE 156 U/L (73-393); MAGNESIUM 2.2 MG/DL (1.5-2.5)
[2017-05-05 20:59] LABS: PROTHROMBIN TIME - PATIENT 9.9 SEC (9.8-11.6)
[2017-05-05 21:00] LABS: ALT (GPT) 51 U/L (12-78); AST (GOT) 47 U/L (15-37); CREATININE 0.83 MG/DL (0.60-1.30); GLOMERULAR FILTRATION RATE 99 ML/MIN (>89)
[2017-05-05 21:01] LABS: TOTAL BILIRUBIN ADULT 0.3 MG/DL (0.2-1.0)
[2017-05-05 21:02] LABS: TOTAL PROTEIN 7.5 GM/DL (6.4-8.2)
[2017-05-05 21:03] LABS: ALKALINE PHOSPHATASE 193 U/L (45-117)
[2017-05-05 21:05] LABS: TROPONIN I LESS THAN 0.02 NG/ML (0.02-0.05)
[2017-05-05 21:25] VITALS: BP 150/92; PULSE 98; O2SAT 95
[2017-05-05 21:38] LABS: BILIRUBIN, URINE NEG (NEG); BLOOD, URINE NEG (NEG); GLUCOSE,URINE NEG (NEG); KETONE, URINE 40 mg/dL (NEG); NITRITE,URINE NEG (NEG); URINE LEUKOCYTE ESTERASE NEG (NEG)
[2017-05-05 21:46] LABS: URINE COLOR YELLOW (YELLW/STRAW)
[2017-05-05 21:47] LABS: MUCUS URINE MOD /lpf (OCC); SQUAMOUS EPITHELIAL CELL URINE 0-5 /hpf (0-5)
--- NOTE | 2017-05-05 22:26 | PD ---
Physical Exam Narrative I, Dr. Ventura, have reviewed the advance practice practitioner's documentation and am in agreement, met with the patient face to face, made the diagnosis, and the medical decision making was done by me. *My assessment and Findings: Gastritis vs. colitis vs. musculoskeletal pain vs. chronic pain secondary to scar tissue 46yo M with abdominal pain since his surgeries in 11/2016. Also with atypical chest pain since november. Pain is more left upper abdomen and worst after heavy lifting today. Do not think this is cardiac. Labs reviewed, no leukocytosis. Lactic acid mildly elevated at 2.2. Pt given NS IVF. Troponin negative. Lipase normal. AST mildly elevated. CXR showed mild atelectasis and/or scarring of left lung base. Pt given morphine 2mg and zofran but is still in a lot of pain. Pt is very tender to palpation left upper abdomen. Will give morphine 6mg IV and do CT a/p. Pt reevaluated at bedside and pain has improved. Said as long as he doesnt move much, he is not in pain. Pt is saturating at 96% on RA and speaking in complete sentences. CT a/p showed focal infiltrate in left lung base. Pt denies any increased cough, fever, or sob. Pt has scarring of left lung base. Large hiatal hernia at GE junction. Pt has a history of this and has GI Dr. Ruth to follow up with. Also has general surgeon to follow up with. No acute pathology. Return precautions given. Data Data Last Documented VS Vital Signs Date Time Temp Pulse Resp B/P (MAP) Pulse Ox O2 Delivery O2 Flow Rate FiO2 05/06/17 00:28 90 18 122/76 (91) 99 05/05/17 22:30 Room Air 05/05/17 17:00 98.4 Orders Orders Complete Blood Count With Diff (05/05/17 20:08) Comprehensive Metabolic Panel (05/05/17 20:08) Lipase (05/05/17 20:08) Lactic Acid (05/05/17 20:08) Prothrombin Time / Inr (Pt) (05/05/17 20:08) Act Partial Throm Time (Ptt) (05/05/17 20:08) Urinalysis - C+S If Indicated (05/05/17 20:08) Iv Access Insert/Monitor (05/05/17 20:08) Ecg Monitoring (05/05/17 20:08) Oximetry (05/05/17 20:08) Morphine Inj (Morphine Inj) (05/05/17 20:15) Ondansetron Inj (Zofran Inj) (05/05/17 20:15) Sodium Chloride 0.9% Flush (Ns Flush) (05/05/17 20:15) Electrocardiogram (05/05/17 20:08) Chest, Single Ap (05/05/17 20:08) Ckmb (Isoenzyme) Profile (05/05/17 20:08) Magnesium (Mg) (05/05/17 20:08) Troponin I (05/05/17 20:08) Aspirin Chew (Aspirin Chew) (05/05/17 20:30) CKMB (05/05/17 20:30) CKMB% (05/05/17 20:30) Morphine Inj (Morphine Inj) (05/05/17 22:30) Ct Abd/Pel W Iv Contrast(Rout) (05/05/17 ) Sodium Chlor 0.9% 1000 Ml Inj (Ns 1000 M (05/05/17 22:30) Iohexol 350 Inj (Omnipaque 350 Inj) (05/05/17 23:00) Labs Laboratory Tests Test 05/05/17 20:30 05/05/17 21:15 White Blood Count 9.9 TH/MM3 Red Blood Count 4.89 MIL/MM3 Hemoglobin 12.6 GM/DL Hematocrit 39.3 % Mean Corpuscular Volume 80.4 FL Mean Corpuscular Hemoglobin 25.8 PG Mean Corpuscular Hemoglobin Concent 32.1 % Red Cell Distribution Width 17.9 % Platelet Count 322 TH/MM3 Mean Platelet Volume 7.9 FL Neutrophils (%) (Auto) 73.1 % Lymphocytes (%) (Auto) 13.4 % Monocytes (%) (Auto) 11.7 % Eosinophils (%) (Auto) 1.0 % Basophils (%) (Auto) 0.8 % Neutrophils # (Auto) 7.2 TH/MM3 Lymphocytes # (Auto) 1.3 TH/MM3 Monocytes # (Auto) 1.2 TH/MM3 Eosinophils # (Auto) 0.1 TH/MM3 Basophils # (Auto) 0.1 TH/MM3 CBC Comment DIFF FINAL Differential Comment Prothrombin Time 9.9 SEC Prothromb Time International Ratio 1.0 RATIO Activated Partial Thromboplast Time 25.0 SEC Blood Urea Nitrogen 12 MG/DL Creatinine 0.83 MG/DL Random Glucose 91 MG/DL Total Protein 7.5 GM/DL Albumin 3.4 GM/DL Calcium Level 8.2 MG/DL Magnesium Level 2.2 MG/DL Alkaline Phosphatase 193 U/L Aspartate Amino Transf (AST/SGOT) 47 U/L Alanine Aminotransferase (ALT/SGPT) 51 U/L Total Bilirubin 0.3 MG/DL Sodium Level 139 MEQ/L Potassium Level 3.8 MEQ/L Chloride Level 103 MEQ/L Carbon Dioxide Level 25.1 MEQ/L Anion Gap 11 MEQ/L Estimat Glomerular Filtration Rate 99 ML/MIN Lactic Acid Level 2.2 mmol/L Total Creatine Kinase 121 U/L Creatine Kinase MB 1.3 NG/ML Troponin I LESS THAN 0.02 NG/ML Lipase 156 U/L Urine Color YELLOW Urine Turbidity CLEAR Urine pH 6.0 Urine Specific [place] 1.028 Urine Protein NEG mg/dL Urine Glucose (UA) NEG mg/dL Urine Ketones 40 mg/dL Urine Occult Blood NEG Urine Nitrite NEG Urine Bilirubin NEG Urine Leukocyte Esterase NEG Urine Squamous Epithelial Cells 0-5 /hpf Urine Mucus MOD /lpf Microscopic Urinalysis Comment CULT NOT INDICATED MDM Supervised Visit with ERLINDA: Yes Interpretation(s) EKG: NSR 97bpm. Normal axis. No ST segment elevation or depression. Diagnosis Primary Impression: Chronic pain Qualified Codes: G89.29 - Other chronic pain Patient Instructions: General Instructions Departure Forms: Tests/Procedures Additional Instruction: Please follow up with your primary care physician and possibly pain management for further management of your pain. Please follow up with your GI doctor. Return to the ED if symptoms worsen. Med/Other Pt SpecificInfo: Prescription(s) given Scripts Acetaminophen (Tylenol) 325 Mg Tab 650 MG PO Q6H Y for PAIN SCALE 1 TO 4, #20 TAB 0 Refills Prov: Joelle Ventura DO 05/05/17 Disposition: 01 DISCHARGE HOME Condition: Stable Joelle Ventura DO May 05, 2017 22:26
[2017-05-05 22:30] VITALS: BP 124/71; PULSE 101; RESP 18; O2SAT 96
[2017-05-05] MEDS ORDERED: SODIUM CHLOR 0.9% 1000 ML INJ 1,000 ML IV ONE (22:30)
[2017-05-05] MEDS ORDERED: MORPHINE SULFATE 2 MG/ML INJ IV PUSH ONE (22:30)
[2017-05-05] MEDS ORDERED: IOHEXOL 350 MG/ML 10 ML VIAL (for RAD DIAG) IVCONTRAST ONE (23:00)
[2017-05-05] MEDS ORDERED: TYLE325T PO (23:48)
--- NOTE | 2017-05-05 23:48 | RADRPT ---
EXAM DATE/TIME: 05/05/2017 22:56 [place] COMPARISON: No previous studies available for comparison. INDICATIONS : Back and abdominal pain IV CONTRAST: 96 cc Omnipaque 350 (iohexol) IV ORAL CONTRAST: No oral contrast ingested. RADIATION DOSE: 7.69 CTDIvol (mGy) MEDICAL HISTORY : Hernia, hiatal. Chronic obstructive pulmonary disease. Gastroesophageal reflux disease.Barretts esoph jake SURGICAL HISTORY : Elías fundiopication X2, HH repair ENCOUNTER: Initial ACUITY: 1 day PAIN SCALE: 7/10 LOCATION: Left lateral abdomen TECHNIQUE: Volumetric scanning of the abdomen and pelvis was performed. Using automated exposure control and ad justment of the mA and/or kV according to patient size, radiation dose was kept as low as reasonably achievable to obtain optimal diagnostic quality images. DICOM format image data is available electro nically for review and comparison. FINDINGS: LOWER LUNGS: There is an infiltrate in the left lung base. The right lung base is clear. There is a large hiatal h ernia the GE junction. A LIVER: Homogeneous density without lesion. There is no dilation of the biliary tree. No calcified gallston es. There is some fatty infiltration throughout the liver. SPLEEN: Normal size without lesion. PANCREAS: Within normal limits. KIDNEYS: Normal in size and shape. There is no mass, stone or hydronephrosis. ADRENAL GLANDS: Within normal limits. VASCULAR: There is no aortic aneurysm. BOWEL/MESENTERY: The stomach, small bowel, and colon demonstrate no acute abnormality. There is no free intraperitone al air or fluid. No inflammatory changes. There is a large hiatal hernia the GE junction. ABDOMINAL WALL: Within normal limits. RETROPERITONEUM: There is no lymphadenopathy. BLADDER: No wall thickening or mass. REPRODUCTIVE: Within normal limits. INGUINAL: There is no lymphadenopathy or hernia. MUSCULOSKELETAL: Within normal limits for patient age. CONCLUSION: 1. Focal infiltrate in the left lung base. 2. Fatty infiltration of the liver. 3. Large hiatal hernia the GE junction. 4. No acute pathology. Jacek James MD on May 05, 2017 at 23:43 Board Certified Radiologist. This report was verified electronically.
[2017-05-06 00:28] VITALS: BP 122/76
--- NOTE | 2017-05-06 15:57 | EKG ---
Date Performed: 05/05/2017 Time Performed: 20:47:55 PTAGE: 46 years EKG: Sinus rhythm NORMAL ECG PREVIOUS TRACING : 10/07/2016 06.58 Since previous tracing, no significant change noted DOCTOR: Suraj Vergara Interpretating Date/Time 05/06/2017 15:56:22
== END 2017-05-06 00:30 | disposition home or self-care (01) ==
LOC: PHED 16:21 → PHEFT 05-06 00:30
DX: G89.29 Other chronic pain (principal); K44.9 Diaphragmatic hernia without obstruction or gangrene; R07.89 Other chest pain; J44.9 Chronic obstructive pulmonary disease, unspecified; K22.70 Barrett's esophagus without dysplasia; K21.9 Gastro-esophageal reflux disease without esophagitis; Z79.899 Other long term (current) drug therapy; Z87.891 Personal history of nicotine dependence
CPT/HCPCS: 71045; 74177; 80053; 81001; 82550; 82552; 83605; 83690; 83735; 84484; 85025; 85610; 85730; 93005; 96361; 96374; 96375; 99285; J2270; J2405; J7030; Q9967

== ENCOUNTER 2017-09-28 17:36 | Emergency (ER) | payer BC ==
[~2017-09-28] VITALS: Ht 182.9 cm; Wt 84.0 kg
[~2017-09-28 17:36] MED LIST changes: +TYLE325T PO
[2017-09-28 17:58] VITALS: BP 109/71; PULSE 87; RESP 17; TEMP 98.2; O2SAT 98
[2017-09-28] MEDS ORDERED: CYCL10TA PO (18:24)
[2017-09-28] MEDS ORDERED: GABA300C5 PO (18:24)
[2017-09-28] MEDS ORDERED: NAPR250T4 PO (18:24)
[2017-09-28] MEDS ORDERED: DULO20 PO (18:24)
[2017-09-28] MEDS ORDERED: VIST25CA PO (18:24)
--- NOTE | 2017-09-28 19:11 | PD ---
HPI . Abdominal pain Chief Complaint: Abdominal Pain Time Seen by Provider: 19:00 Travel History International Travel<30 days: No Contact w/Intl Traveler<30days: No Traveled to known affect area: No History of Present Illness HPI pt has localized R sided suman-umbilical pain for 2 days and getting worse , He took gabapentin without relief, pt thinks the pain may be related to his recent hiatal hernia that occurred in november 2016 with surgical repeair that had complications including PTX and repeat surgeries by Dr Jo, and a transfer to [facility] for CT surgery approach to putting stomach down below esophagus and diaphragm, pt denies vomit no constipation , called his PCP casey who sent him to [facility] Past Medical History Anemia: Yes Arthritis: No Autoimmune Disease: No Anxiety: Yes Depression: No Heart Rhythm Problems: No Cancer: No Cardiovascular Problems: No High Cholesterol: No Chemotherapy: No Chest Pain: Yes Congestive Heart Failure: No COPD: Yes Cerebrovascular Accident: No Diabetes: No Diminished Hearing: No Endocrine: No Gastrointestinal Disorders: Yes (RAMOS'S ESOPHAGUS WITH ESOPHAGITIS) GERD: Yes Genitourinary: No Headaches: No Hepatitis: No Hiatal Hernia: Yes Heparin Induced Thrombocytopen: No Hypertension: No Immune Disorder: No Implanted Vascular Access Dvce: No Kidney Stones: No Medical other: No Musculoskeletal: No Neurologic: No Psychiatric: No Reproductive: No Respiratory: Yes Immunizations Current: No Migraines: No Radiation Therapy: No Renal Failure: No Seizures: No Sickle Cell Disease: No Sleep Apnea: No Thyroid Disease: No Ulcer: No Past Surgical History Abdominal Surgery: Yes (LEONARDO FUNDLOPICATION X2, several abd surgeries) Arteriovenous Shunt: No Body Medical Devices: NONE Insulin Pump: No Joint Replacement: No Pacemaker: No Other Surgery: Yes (HIATAL HERNIA REPAIR) Social History Alcohol Use: No Tobacco Use: No (QUIT 5 YEARS AGO, SMOKED FOR 9) Substance Use: No (QUIT 2000) Allergies-Medications (Allergen,Severity, Reaction): Coded Allergies: penicillin G (Unverified Allergy, Unknown, 09/28/17) PT UNSURE OF REACTION. STS HE FEELS HE IS ALLERGIC BECASUE HIS MOTHER AND GRANDMOTHER ARE BOTH ALLERGIC TO IT. Reported Meds & Prescriptions Reported Meds & Active Scripts Active Hydrocodone-Acetamin 5-300 mg (Hydrocodone/Acetaminophen) 5 Mg-300 Mg Tablet 5 Mg PO Q6HR Miralax Powder (Polyethylene Glycol 3350 Powder) 17 Gm Powd 17 Gm PO DAILY Mix and dissolve one measuring cap-ful (17 grams) in water or juice. Reported Naproxen 250 Mg Tab 250 Mg PO BID Vistaril (Hydroxyzine Pamoate) 25 Mg Cap Unknown Dose PO HS Flexeril (Cyclobenzaprine HCl) 10 Mg Tab 10 Mg PO TID Cymbalta DR (Duloxetine HCl) 20 Mg Capdr 20 Mg PO DAILY Gabapentin 300 Mg Cap 300 Mg PO TID Review of Systems Except as stated in HPI: all other systems reviewed are Neg Gastrointestinal: Positive: Abdominal Pain Physical Exam Narrative GENERAL: Nontoxic in no apparent distress lying comfortably in the stretcher when I enter the room SKIN: Warm and dry. HEAD: Atraumatic. Normocephalic. EYES: Pupils equal and round. No scleral icterus. No injection or drainage. ENT: No nasal bleeding or discharge. Mucous membranes pink and moist. NECK: Trachea midline. No JVD. CARDIOVASCULAR: Regular rate and rhythm. RESPIRATORY: No accessory muscle use. Clear to auscultation. Breath sounds equal bilaterally. GASTROINTESTINAL: Abdomen patient has a healed midline scar from the subxiphoid area to the periumbilical area no hernias palpated no tenderness with percussion however there is a focal area just right of the midline scar where he feels tenderness possible slight defect in the abdominal wall... no knot or incarcerated hernia felt MUSCULOSKELETAL: Extremities without clubbing, cyanosis, or edema. No obvious deformities. NEUROLOGICAL: Awake and alert. No obvious cranial nerve deficits. Motor grossly within normal limits. Five out of 5 muscle strength in the arms and legs. Normal speech. PSYCHIATRIC: Appropriate mood and affect; insight and judgment normal. Data Data Last Documented VS Vital Signs Date Time Temp Pulse Resp B/P (MAP) Pulse Ox O2 Delivery O2 Flow Rate FiO2 09/29/17 00:06 09/28/17 23:44 97.8 65 17 100 Room Air Orders Orders Complete Blood Count With Diff (09/28/17 19:11) Comprehensive Metabolic Panel (09/28/17 19:11) Lipase (09/28/17 19:11) Lactic Acid (09/28/17 19:11) Iv Access Insert/Monitor (09/28/17 19:11) Ecg Monitoring (09/28/17 19:11) Oximetry (09/28/17 19:11) Sodium Chloride 0.9% Flush (Ns Flush) (09/28/17 19:15) Al-Mag Hy-Si 40-40-4 Mg/Ml Liq (Mag-Al P (09/28/17 19:15) Lidocaine 2% Viscous (Xylocaine 2% Visco (09/28/17 19:15) Ct Abd/Pel W Iv Contrast(Rout) (09/28/17 ) Diatrizoate Liq ( Gastroview Liq) (09/28/17 21:15) Sodium Chlor 0.9% 1000 Ml Inj (Ns 1000 M (09/28/17 21:15) Morphine Inj (Morphine Inj) (09/28/17 21:15) Oral Contrast - Adult (09/28/17 22:11) Iohexol 350 Inj (Omnipaque 350 Inj) (09/28/17 23:33) Oxycodone-Acetamin 5-325 Mg (Percocet (09/29/17 00:00) Ed Discharge Order (09/28/17 23:57) Labs Laboratory Tests Test 09/28/17 19:35 White Blood Count 7.9 TH/MM3 Red Blood Count 4.37 MIL/MM3 Hemoglobin 11.7 GM/DL Hematocrit 35.6 % Mean Corpuscular Volume 81.5 FL Mean Corpuscular Hemoglobin 26.7 PG Mean Corpuscular Hemoglobin Concent 32.8 % Red Cell Distribution Width 16.6 % Platelet Count 320 TH/MM3 Mean Platelet Volume 8.5 FL Neutrophils (%) (Auto) 54.4 % Lymphocytes (%) (Auto) 29.7 % Monocytes (%) (Auto) 8.5 % Eosinophils (%) (Auto) 6.1 % Basophils (%) (Auto) 1.3 % Neutrophils # (Auto) 4.3 TH/MM3 Lymphocytes # (Auto) 2.4 TH/MM3 Monocytes # (Auto) 0.7 TH/MM3 Eosinophils # (Auto) 0.5 TH/MM3 Basophils # (Auto) 0.1 TH/MM3 CBC Comment DIFF FINAL Differential Comment Blood Urea Nitrogen 21 MG/DL Creatinine 0.91 MG/DL Random Glucose 96 MG/DL Total Protein 6.3 GM/DL Albumin 3.5 GM/DL Calcium Level 8.3 MG/DL Alkaline Phosphatase 111 U/L Aspartate Amino Transf (AST/SGOT) 19 U/L Alanine Aminotransferase (ALT/SGPT) 26 U/L Total Bilirubin 0.2 MG/DL Sodium Level 143 MEQ/L Potassium Level 3.9 MEQ/L Chloride Level 108 MEQ/L Carbon Dioxide Level 24.7 MEQ/L Anion Gap 10 MEQ/L Estimat Glomerular Filtration Rate 89 ML/MIN Lactic Acid Level 1.7 mmol/L Lipase 133 U/L MDM Medical Decision Making Medical Screen Exam Complete: Yes Emergency Medical Condition: Yes Differential Diagnosis Differential diagnosis includes small bowel obstruction versus umbilical hernia versus incarcerated hernia versus hernia recurrence of the hiatal hernia versus diaphragm rupture versus other Narrative Course CT no SBO no recurrence of hiatal hernia , slight fat in hernia periumbilical , also some stool in transverse colon just in area of pain possible cause of ache he feels in right periumbilical or fat hernia causing pain , safe to follo wup out pt wit [facility] Diagnosis Primary Impression: Abdominal pain Qualified Codes: R10.9 - Unspecified abdominal pain Referrals: Dewayne Jo MD Patient Instructions: Narcotic given in the ED Scripts Hydrocodone/Acetaminophen (Hydrocodone-Acetamin 5-300 mg) 5 Mg-300 Mg Tablet 5 MG PO Q6HR, #10 Prov: Manjit Moser MD 09/29/17 Polyethylene Glycol 3350 Powder (Miralax Powder) 17 Gm Powd 17 GM PO DAILY for Constipation, #1 CAN 0 Refills Mix and dissolve one measuring cap-ful (17 grams) in water or juice. Prov: Manjit Moser MD 09/29/17 Disposition: 01 DISCHARGE HOME Condition: Good Manjit Moser MD Sep 28, 2017 19:10
[2017-09-28] MEDS ORDERED: SODIUM CHLORIDE 0.9% FLUSH 10 ML FLUSH IV FLUSH PRN (19:15)
[2017-09-28] MEDS ORDERED: LIDOCAINE VISCOUS 2% SOLN 15 ML UDC PO ONE (19:15)
[2017-09-28] MEDS ORDERED: ALUMINUM/MAGNESIUM/SIMETH 30 ML CUP PO ONE (19:15)
[2017-09-28 19:35] VITALS: BP 115/73; PULSE 81; RESP 16; O2SAT 100
[2017-09-28 19:49] LABS: AUTOMATED NEUTROPHIL # 4.3 TH/MM3 (1.8-7.7); BASOPHIL # 0.1 TH/MM3 (0-0.2); BASOPHIL % 1.3 % (0.0-2.0); EOSINOPHIL # 0.5 TH/MM3 (0-0.4); EOSINOPHIL % 6.1 % (0.0-4.0); HEMATOCRIT 35.6 % (39.0-51.0); HEMOGLOBIN 11.7 GM/DL (13.0-17.0); LYMPH % 29.7 % (9.0-44.0); LYMPHOCYTE # 2.4 TH/MM3 (1.0-4.8); MEAN CELL VOLUME 81.5 FL (80.0-100.0); MEAN CORPUSCULAR HEMOGLOBIN 26.7 PG (27.0-34.0); MEAN CORPUSCULAR HGB CONC 32.8 % (32.0-36.0); MEAN PLATELET VOLUME 8.5 FL (7.0-11.0); MONO % 8.5 % (0.0-8.0); MONOCYTE # 0.7 TH/MM3 (0-0.9); NEUT % 54.4 % (16.0-70.0); PLATELET COUNT 320 TH/MM3 (150-450); RED BLOOD COUNT 4.37 MIL/MM3 (4.50-5.90); RED CELL DISTRIBUTION WIDTH 16.6 % (11.6-17.2); WHITE BLOOD COUNT 7.9 TH/MM3 (4.0-11.0)
[2017-09-28 20:05] LABS: ALBUMIN 3.5 GM/DL (3.4-5.0); AST (GOT) 19 U/L (15-37); BICARBONATE 24.7 MEQ/L (21.0-32.0); BLOOD UREA NITROGEN 21 MG/DL (7-18); CALCIUM 8.3 MG/DL (8.5-10.1); CHLORIDE 108 MEQ/L (98-107); CREATININE 0.91 MG/DL (0.60-1.30); GLOMERULAR FILTRATION RATE 89 ML/MIN (>89); GLUCOSE,RANDOM 96 MG/DL (74-106); SODIUM (NA) 143 MEQ/L (136-145)
[2017-09-28 20:09] LABS: ALKALINE PHOSPHATASE 111 U/L (45-117); ALT (GPT) 26 U/L (12-78); TOTAL BILIRUBIN ADULT 0.2 MG/DL (0.2-1.0); TOTAL PROTEIN 6.3 GM/DL (6.4-8.2)
[2017-09-28] MEDS ORDERED: DIATRIZOATE MEGLUM/DIATRIZOATE SOD 9 ML CUP PO ONE (21:15)
[2017-09-28] MEDS ORDERED: MORPHINE SULFATE 4 MG/ML INJ IV PUSH ONE (21:15)
[2017-09-28] MEDS ORDERED: SODIUM CHLOR 0.9% 1000 ML INJ 1,000 ML IV ONE (21:15)
[2017-09-28 21:19] VITALS: BP 128/77; PULSE 82; RESP 18; TEMP 98.7; O2SAT 100
[2017-09-28] MEDS ORDERED: IOHEXOL 350 MG/ML 10 ML VIAL (for RAD DIAG) IVCONTRAST ONE (23:33)
[2017-09-28 23:44] VITALS: BP 139/91; PULSE 65; RESP 17; TEMP 97.8; O2SAT 100
--- NOTE | 2017-09-28 23:50 | RADRPT ---
EXAM DATE: 09/28/2017 11:38 PM EDT AGE/SEX: 47 years / Male INDICATIONS: Periumbilical pain for two days. CLINICAL DATA: This is the patient's initial encounter. Patient reports that signs and symptoms have been present for 1 day and indicates a pain score of 5/10. MEDICAL/SURGICAL HISTORY: Chronic obstructive pulmonary disease. Hiatal hernia. None. ORAL CONTRAST: Prescribed oral contrast ingested. RADIATION DOSE: 10.96 CTDI (mGy) COMPARISON: [facility], CT ABDOMEN & PELVIS W CONTRAST, 05/05/2017. . TECHNIQUE: Multiple contiguous axial images were obtained through the abdomen and pelvis following b olus infusion of 100 ml Omnipaque 350 (iohexol) nonionic water-soluble contrast as a single exam do se. Prescribed oral contrast ingested. Using automated exposure control and adjustment of the mA and /or kV according to patient size, the radiation dose was kept as low as reasonably achievable to obta in optimal diagnostic quality images. FINDINGS: Compare April 2017. There is chronic left basilar airspace disease similar to April. Basilar scar ring and subsegmental atelectasis present. No effusion. Moderate hiatal hernia. Again seen are several tiny cysts in the liver previously seen fatty infiltration of the liver has im proved. Spleen, adrenals, kidneys and pancreas are unremarkable. No calcified gallstones or biliary ductal di latation. No free fluid. No bowel obstruction. Small fat-containing umbilical hernia. CONCLUSION: 1. Electronically signed by: Dewayne Sultana MD 09/28/2017 11:49 PM EDT
[2017-09-29] MEDS ORDERED: oxyCODONE/ACETAMINOPHEN 5 MG/325 MG TAB PO ONE
[2017-09-29] MEDS ORDERED: [UNRECOGNIZED DRUG - CODE] PO (00:15)
[2017-09-29] MEDS ORDERED: MIRA3350 PO (00:15)
== END 2017-09-29 00:56 | disposition home or self-care (01) ==
LOC: NEPE 17:36
DX: R10.33 Periumbilical pain (principal)
CPT/HCPCS: 74177; 80053; 83605; 83690; 85025; 96361; 96374; 99285; J2270; J7030; Q9963; Q9967